=== PATIENT | male | born 1955 | race Hispanic/Latino ===

== ENCOUNTER → 2023-11-19 | Emergency (ER) | payer OTHER ==
--- OUTSIDE RECORDS SUMMARY | 2023-11-19 13:36 | XMS REPORT | Continuity of Care Document ---
Author Name Unknown Address [address] [facility] [address] [place] [address] [facility] [address] [facility] [address] [place] [address] Care Team Providers Care Portable Trackman Name Role Phone Pcp, Patient Does Not Have A Primary Care Physic gonzalo Piyush Marsh RN Attending Clinician Unavailab le Only, Ang Db Test Attending Clinician Unavailabl e Unknown, Attending Attending Clinician Unavailab XIOMARA Panda Attending Clinician Unavailable Payers Payer Name Policy Type Policy Number Effective Date Expirati on Date Source Allergies, Adverse Reactions, Alerts Allergy Name Allergy Type Status Severity Reaction(s) Onset Date Inactive Date Treating Clinician Comments Source NO KNOWN ALLERGIE S Drug Class Active [facility] Social History Social Habit Start Date Stop Date Quantity Comments Source Exposure to SARS-CoV-2 (event) Not sure [facility] Sex Assigned At 1955 00:00:00 1955 00:00:00 [facility] Smoking Status Start Date Stop Date Source Unknown if ever smoked [facility] Encounters Start Date/Time End Date/Time Encounter Type Admission Type Attending Clinicians Care Facility Care Department Encounter ID Source 2021-12-06 00:00:00 2021-12-06 00:00:00 Letter (Out) Piyush Marsh [facility] [id number] [facility] 2021-12-05 15:00:00 2021-12-05 15:15:00 Laboratory Only Only, Ang Db Test Unknown, Attending [facility] [id number] [facility] 2021-12-05 15:00:00 2021-12-05 15:00:00 Outpatient XIOMARA LAMB [facility] [id number] [facility]
--- NOTE | 2023-11-19 14:53 | EDPHYS ---
Physician Documentation [facility] Name: Ben Gillis Age: 68 yrs Sex: Male : 1955 Arrival Date: 11/19/2023 Time: 13:33 Bed IW1 Private MD: ED Physician Eliezer Brown HPI: 11/19 13:45 This 68 yrs old Male presents to ER via Unassigned with complaints of Flu kb Symptoms. 13:45 Pt is a 68 year old male who presents with cough, congestion, fever, chills, bodyaches kb and fatigue that started 3 days ago. Denies chest pain or shortness of breath. Historical: - Allergies: 13:59 No Known Allergies; bp - Immunization history:: Adult Immunizations up to date. - Social history:: Smoking status: Patient denies any tobacco usage or history of. ROS: 13:44 Abdomen/GI: Negative for abdominal pain, nausea, vomiting, diarrhea, and constipation, kb 13:44 Constitutional: Positive for body aches, chills, fatigue, fever, malaise, 13:44 ENT: Positive for sinus congestion, 13:44 Respiratory: Positive for cough, 13:44 All other systems are negative, Exam: 13:44 Constitutional: This is a well developed, well nourished patient who is awake, alert, kb and in no acute distress. Head/Face: Normocephalic, atraumatic. ENT: Moist Mucous membranes Cardiovascular: Regular rate Respiratory: Respirations even and unlabored. No increased work of breathing. Talking in full sentences Skin: Warm, dry with normal turgor. Normal color. MS/ Extremity: Pulses equal, no cyanosis. Neurovascular intact. Full, normal range of motion. Neuro: Awake and alert, GCS 15, oriented to person, place, time, and situation. Moves all extremities. Normal gait. Vital Signs: 13:58 BP 135 / 89; Pulse 94; Resp 16; Temp 99.8; Pulse Ox 95% ; Weight 95.25 kg; Height 6 ft. bp 1 in. ; 13:58 Body Mass Index 27.71 (95.25 kg, 185.42 cm) bp MDM: 13:37 Patient medically screened. kb 13:45 Differential diagnosis: flu, covid, uri, pneumonia. Data reviewed: vital signs, nurses kb notes. Test considered but Not performed: X-ray: chest x-ray considered, but lungs clear bilaterally, resp even and unlabored. 14:52 Counseling: I had a detailed discussion with the patient and/or guardian regarding the kb historical points, exam findings, and any diagnostic results supporting the discharge/admit diagnosis, lab results, the need for outpatient follow up, a family practitioner, to return to the emergency department if symptoms worsen or persist or if there are any questions or concerns that arise at home. 11/19 13:44 Order name: Flu; Complete Time: 14:43 kb 11/19 13:44 Order name: SARS-COV-2 RT PCR; Complete Time: 14:52 kb Administered Medications: No medications were administered Disposition: 15:37 Co-signature as Attending Physician, Eliezer Brown MD I reviewed the patient's care rn provided by the Advanced Practice Provider and agree with the diagnosis and treatment plan. Disposition Summary: 11/19/23 14:52 Discharge Ordered Notes: Location: Home kb Condition: Stable kb Diagnosis - Acute upper respiratory infection, unspecified kb Followup: kb - With: Emergency Department - When: As needed - Reason: Worsening of condition Followup: kb - With: Private Physician - When: 2 - 3 days - Reason: Recheck today's complaints, Continuance of care, Re-evaluation by your physician Discharge Instructions: - Discharge Summary Sheet kb - Upper Respiratory Infection, Adult, Wyho-oe-Tica kb - Viral Respiratory Infection, Gsck-Pm-Bbsf kb Forms: - Medication Reconciliation Form kb - Thank You Letter kb - Antibiotic Education kb - Prescription Opioid Use kb - Patient Portal Instructions kb - Leadership Thank You Letter kb - Work release form rg4 Signatures: Dispatcher [employer] Vikki Jiménez, BRIM IRONER HAND-C BRIM IRONER HAND-Eliezer Lees MD MD rn Peltier, Brian RN RN bp
--- NOTE | 2023-11-19 14:53 | ER ---
Nurse's Notes [facility] Name: Ben Gillis Age: 68 yrs Sex: Male : 1955 Arrival Date: 11/19/2023 Time: 13:33 Bed IW1 Private MD: Diagnosis: Acute upper respiratory infection, unspecified Presentation: 11/19 13:58 Chief complaint: Patient states: FATIGUE, MYALGIA, CONGESTION AND FEVER SINCE FRIDAY. bp Coronavirus screen: chills, congestion, cough unrelated to allergies, fever, muscle pain. Ebola Screen: No symptoms or risks identified at this time. Initial Sepsis Screen: Does the patient meet any 2 criteria? No. Patient's initial sepsis screen is negative. Does the patient have a suspected source of infection? No. Patient's initial sepsis screen is negative. Risk Assessment: Do you want to hurt yourself or someone else? Patient reports no desire to harm self or others. Onset of symptoms is unknown. 13:58 Method Of Arrival: Ambulatory bp 13:58 Acuity: SUGEY 4 bp Triage Assessment: 13:59 General: Appears in no apparent distress. ill, Behavior is calm, cooperative, bp appropriate for age. Pain: Complains of pain in GENERAL MYALGIA. Historical: - Allergies: 13:59 No Known Allergies; bp - Immunization history:: Adult Immunizations up to date. - Social history:: Smoking status: Patient denies any tobacco usage or history of. Screenin:00 [facility] ED Fall Risk Assessment (Adult) History of falling in the last 3 months, bp including since admission No falls in past 3 months (0 pts). Abuse screen: Denies threats or abuse. Denies injuries from another. Nutritional screening: No deficits noted. Tuberculosis screening: No symptoms or risk factors identified. Assessment: 14:00 General: SEE TRIAGE NOTE. bp Vital Signs: 13:58 BP 135 / 89; Pulse 94; Resp 16; Temp 99.8; Pulse Ox 95% ; Weight 95.25 kg; Height 6 ft. bp 1 in. ; 13:58 Body Mass Index 27.71 (95.25 kg, 185.42 cm) bp ED Course: 13:36 Patient arrived in ED. im 13:36 Vik[facility] Solis FNP-C [facility] kb 13:36 Eliezer Brown MD is Attending Physician. kb 13:59 Triage completed. bp 13:59 Arm band placed on. bp 14:00 Patient has correct armband on for positive identification. Provided Education on: N/A. bp 14:03 Flu Sent. bd 14:04 SARS-COV-2 RT PCR Sent. bd 14:56 No provider procedures requiring assistance completed. Patient did not have IV access ap3 during this emergency room visit. Administered Medications: No medications were administered Medication: 14:00 VIS not applicable for this client. bp Outcome: 14:52 Discharge ordered by MD. kb 14:56 Discharged to home ambulatory, ap3 14:56 Condition: good 14:56 Discharge instructions given to patient, Instructed on discharge instructions, follow up and referral plans. Demonstrated understanding of instructions, follow-up care, patient left with verbal discharge prior to this nurse giving him his discharge documentation 14:57 Patient left the ED. ap3 Signatures: Vikki Solis, BEATRICE-C MANAGER CARD-Griselda Forrest Brian, RN RN bp Alma Malloy RN RN ap3 Isabel Asencio
[2023-11-19 16:51] VITALS: BP 135/89; TEMP 99.8; O2SAT 95
== END ==
LOC: ER 13:33
DX: J06.9 Acute upper respiratory infection, unspecified (principal); Z11.52 Encounter for screening for COVID-19
CPT/HCPCS: 87635; 87804

== ENCOUNTER 2024-03-24 13:41 | Emergency (ER) | payer OTHER ==
--- OUTSIDE RECORDS SUMMARY | 2024-03-24 13:45 | XMS REPORT | Continuity of Care Document ---
Author Name Unknown Address [address] [facility] [address] [place] [address] [facility] [address] [facility] [address] [place] [address] Care Team Providers Care Metal Checker Name Role Phone Pcp, Patient Does Not [...] NO KNOWN ALLERGIE S Drug Class Active [facility] Social History Social Habit Start Date Stop Date Quantity Comments Source Exposure to SARS-CoV-2 (event) Not sure [facility] Sex Assigned At 1955 00:00:00 1955 00:00:00 [facility] Smoking Status Start Date Stop Date Source Unknown if ever smoked [facility] Encounters Start Date/Time End Date/Time Encounter Type Admission Type Attending Clinicians Care Facility Care Department Encounter ID Source 2021-12-06 00:00:00 2021-12-06 00:00:00 Letter (Out) Piyush Marsh [facility] [id number] [facility] 2021-12-05 15:00:00 2021-12-05 15:15:00 Laboratory Only Only, Ang Db Test Unknown, Attending [facility] [id number] [facility] 2021-12-05 15:00:00 2021-12-05 15:00:00 Outpatient XIOMARA LAMB [facility] [id number] [facility]
[2024-03-24] MEDS ORDERED: DERMABOND SKIN ADHESIVE TOP ONE (13:55)
--- NOTE | 2024-03-24 14:03 | ER ---
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 Coronavirus screen: At this time, the client does not indicate any symptoms associated with coronavirus-19. Ebola Screen: No symptoms or risks identified at this time. Initial Sepsis Screen: Does the patient meet any 2 criteria? No. Patient's initial sepsis screen is negative. Does the patient have a suspected source of infection? No. Patient's initial sepsis screen is negative. Risk Assessment: Do you want to hurt yourself or someone else? Patient reports no desire to harm self or others. Onset of symptoms was March 24, 2024. 13:48 Method Of Arrival: Ambulatory ap3 13:48 Acuity: SUGEY 3 ap3 Triage Assessment: 13:49 General: Appears in no apparent distress. Behavior is calm, cooperative, appropriate ap3 for age. Pain: Denies pain. Neuro: Level of Consciousness is awake, alert, obeys commands, Oriented to person, place, time, situation, Appropriate for age. Cardiovascular: Patient's skin is warm and dry. Respiratory: Airway is patent Respiratory effort is even, unlabored, Respiratory pattern is regular, symmetrical. Derm: Wound noted right medial malleolus. Historical: - Allergies: 13:49 No Known Allergies; ap3 - Home Meds: 13:50 hydrochlorothiazide 25 mg Oral tablet [Active]; memantine 10 mg oral tablet [Active]; ap3 donepezil 23 mg oral tablet [Active]; amlodipine 10 mg tablet [Active]; - PMHx: 13:49 Dementia; ap3 - PSHx: 13:49 Tonsillectomy; ap3 - Immunization history:: Client reports having NOT received the Covid vaccine. - Infectious Disease History:: Denies. - Social history:: Smoking status: unknown Patient uses alcohol. Screenin:52 Abuse screen: Denies threats or abuse. Nutritional screening: No deficits noted. ap3 Tuberculosis screening: No symptoms or risk factors identified. 14:11 [facility] ED Fall Risk Assessment (Adult) History of falling in the last 3 months, ap3 including since admission No falls in past 3 months (0 pts) Confusion or Disorientation No (0 pts) Intoxicated or Sedated No (0 pts) Impaired Gait No (0 pts) Mobility Assist Device Used No (0 pt) Altered Elimination No (0 pt) Score/Fall Risk Level 0 - 2 = Low Risk Oriented to surroundings, Maintained a safe environment, Educated pt \T\ family on fall prevention, incl call for assistance when getting out of bed, Assessed \T\ reinforced patient's understanding of fall precautions, Provided non-skid footwear, Hourly rounding (assess needs \T\ fall precautionary measures) done, Used ambulatory aids as needed (educated on \T\ assisted with), Used gait belt as appropriate. Vital Signs: 13:48 Pulse 76; Resp 18; Temp 97.8; Pulse Ox 96% ; Weight 99.79 kg; Height 6 ft. 0 in. ; ap3 13:53 BP 174 / 109; ap3 13:48 Body Mass Index 29.84 (99.79 kg, 182.88 cm) ap3 ED Course: 13:45 Patient arrived in ED. mr 13:49 Triage completed. ap3 13:52 Arm band placed on right wrist. ap3 13:53 Tino Kraft DO is Attending Physician. ms3 14:09 Patient did not have IV access during this emergency room visit. ap3 14:10 Patient has correct armband on for positive identification. Provided Education on: ap3 wound care. 14:10 Assist provider with laceration repair on right medial malleolus using Dermabond. ap3 Performed by Tino Kraft DO Patient tolerated well. Dressings: ABD pad. Administered Medications: No medications were administered Medication: 14:11 VIS not applicable for this client. ap3 Outcome: 14:02 Discharge ordered by . ms3 14:10 Discharged to home ambulatory, ap3 14:10 Condition: good 14:10 Discharge instructions given to patient, Instructed on discharge instructions, follow up and referral plans. Demonstrated understanding of instructions, 14:11 Patient left the ED. ap3 Signatures: Eloise Lorenzo, Reg Rj mr Alma Malloy RN RN ap3 Tino Kraft DO DO ms3 Corrections: (The following items were deleted from the chart) 14:11 14:09 No provider procedures requiring assistance completed. ap3 ap3
--- NOTE | 2024-03-24 14:11 | EDPHYS ---
Physician Documentation [facility] Name: Ben Gillis Age: 68 yrs Sex: Male : 1955 Arrival Date: 03/24/2024 Time: 13:41 Bed IW9 Private MD: ED Physician Tino Kraft HPI: 03/24 14:02 This 68 yrs old Male presents to ER via Ambulatory with complaints of Busted ms3 blood vessel on foot. 14:02 68-year-old male with past medical history of dementia presents to the emergency ms3 department for left foot varicose vein bleeding. Patient states yesterday he scratched his foot and the vein began bleeding. At that time he was able to get the bleeding to stop. Patient then went to work today and was drained out. On coming home he pulled off his sock and his foot began bleeding.. Historical: - Allergies: 13:49 No Known Allergies; ap3 - Home Meds: 13:50 hydrochlorothiazide 25 mg Oral tablet [Active]; memantine 10 mg oral tablet [Active]; ap3 donepezil 23 mg oral tablet [Active]; amlodipine 10 mg tablet [Active]; - PMHx: 13:49 Dementia; ap3 - PSHx: 13:49 Tonsillectomy; ap3 - Immunization history:: Client reports having NOT received the Covid vaccine. - Infectious Disease History:: Denies. - Social history:: Smoking status: unknown Patient uses alcohol. ROS: 14:02 Constitutional: Negative for fever, and chills. Neck: Negative for injury, pain, and ms3 swelling, Cardiovascular: Negative for chest pain, and palpitations. Respiratory: Negative for shortness of breath, cough, wheezing, and pleuritic chest pain, Abdomen/GI: Negative for abdominal pain, nausea, vomiting, diarrhea, and constipation, 14:02 Skin: Positive for Varicose vein bleeding, Exam: 14:02 Constitutional: This is a well developed, well nourished patient who is awake, alert, ms3 and in no acute distress. Head/Face: Normocephalic, atraumatic. Neck: Trachea midline, no cervical lymphadenopathy. Supple, full range of motion without nuchal rigidity, or vertebral point tenderness. No Meningismus. Chest/axilla: Normal chest wall appearance and motion. Nontender with no deformity. Cardiovascular: Regular rate and rhythm with a normal S1 and S2. No gallops, murmurs, or rubs. Normal PMI, no JVD. No pulse deficits. Respiratory: Lungs have equal breath sounds bilaterally, clear to auscultation and percussion. No rales, rhonchi or wheezes noted. No increased work of breathing, no retractions or nasal flaring. Abdomen/GI: Soft, non-tender, with normal bowel sounds. No distension or tympany. No guarding or rebound. No evidence of tenderness throughout. Skin: Warm, dry with normal turgor. Normal color with no rashes, no lesions, and no evidence of cellulitis. MS/ Extremity: Pulses equal, no cyanosis. Neurovascular intact. Full, normal range of motion. Vital Signs: 13:48 Pulse 76; Resp 18; Temp 97.8; Pulse Ox 96% ; Weight 99.79 kg; Height 6 ft. 0 in. ; ap3 13:53 BP 174 / 109; ap3 13:48 Body Mass Index 29.84 (99.79 kg, 182.88 cm) ap3 MDM: 14:01 Patient medically screened. ms3 14:02 Differential diagnosis: Varicose vein ulceration. Data reviewed: vital signs, nurses ms3 notes, and as a result, I will discharge patient. Counseling: I had a detailed discussion with the patient and/or guardian regarding the historical points, exam findings, and any diagnostic results supporting the discharge/admit diagnosis, the need for outpatient follow up, to return to the emergency department if symptoms worsen or persist or if there are any questions or concerns that arise at home. Special discussion: I discussed with the patient/guardian in detail that at this point there is no indication for admission to the hospital. It is understood, however, that if the symptoms persist or worsen the patient needs to return immediately for re-evaluation. ED course: Dermabond applied to varicose vein ulceration. Wound hemostatic. Patient to follow-up with primary care physician in 2 to 3 days. Patient understands agrees with plan. All questions were answered. Return precautions discussed include worsening symptoms, or any other concerns. Administered Medications: No medications were administered Disposition: 15:15 Chart complete. 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
[2024-03-24 14:42] VITALS: BP 174/109; TEMP 97.8; O2SAT 96
== END 2024-03-24 14:11 | disposition home or self-care (01) ==
LOC: ER 13:41
DX: I83.892 Varicose veins of left lower extremity with other complications (principal)
CPT/HCPCS: 99283

== ENCOUNTER 2024-08-23 11:54 | Emergency (ER) | payer OTHER ==
--- OUTSIDE RECORDS SUMMARY | 2024-08-23 11:56 | XMS REPORT | Continuity of Care Document ---
Author Name Unknown Address [address] [facility] [address] [place] [address] [facility] [address] [facility] [address] [place] [address] Care Team Providers Care Microsoft Windows Engineer Name Role Phone Pcp, Patient Does Not [...] NO KNOWN ALLERGIE S Drug Class Active [facility] Social History Social Habit Start Date Stop Date Quantity Comments Source Exposure to SARS-CoV-2 (event) Not sure [facility] Sex Assigned At 1955 00:00:00 1955 00:00:00 [facility] Smoking Status Start Date Stop Date Source Unknown if ever smoked [facility] Encounters Start Date/Time End Date/Time Encounter Type Admission Type Attending Clinicians Care Facility Care Department Encounter ID Source 2021-12-06 00:00:00 2021-12-06 00:00:00 Letter (Out) Piyush Marsh [facility] [id number] [facility] 2021-12-05 15:00:00 2021-12-05 15:15:00 Laboratory Only Only, Ang Db Test Unknown, Attending [facility] [id number] [facility] 2021-12-05 15:00:00 2021-12-05 15:00:00 Outpatient XIOMARA LAMB [facility] [id number] [facility]
[2024-08-23 13:16] LABS: Specific Gravity 1.025 (1.005-1.030); Sqamous Epithelial <5 /HPF (None Seen); Urine Bacteria <20 /HPF (<20); Urine Bilirubin NEGATIVE (Negative); Urine Blood 2+ (Negative); Urine Clarity Extremely Turbid (Clear); Urine Color Dark-Yellow (Yellow); Urine Culture Reflex Order NOT NEEDED; Urine Glucose TRACE (Negative); Urine Ketones NEGATIVE (Negative); Urine Microscopic Reflex YN ORDER UMIC; Urine Mucus 3+ /HPF (None Seen); Urine Nitrite NEGATIVE (Negative); Urine Protein 3+ (Negative); Urine Urobilinogen Normal (Normal); Urine WBC <5 /HPF (<5); Urine pH 5.5 (5.0-7.0)
[2024-08-23 13:28] LABS: Absolute Basophils 0.1 K/uL (0-0.5); Absolute Eosinophils 0.1 K/uL (0-0.5); Absolute Monocytes 1.6 K/uL (0.1-1.3); Absolute Neutrophil 11.2 K/uL (1.8-8.0); Basophils % 0.6 % (0-1.3); Eosinophils % 0.7 % (0-4.4); Hematocrit 52.4 % (39.6-49.0); Hemoglobin 17.1 g/dL (13.6-17.9); Lymphocytes % 7.2 % (15.3-44.8); MCHC 32.6 g/dL (32.0-36.0); MCV 95.3 fL (80-100); MPV 9.5 fL (7.6-11.3); Monocytes % 11.4 % (3.3-12.3); Neutrophils % 80.1 % (41.7-73.7); Platelets 268 thou/uL (152-406); RBC Red Blood Cell Count 5.49 M/uL (4.33-5.43); Red Cell Distribution Width 13.4 % (12.1-15.2)
[2024-08-23 13:32] LABS: SARS-CoV-2 Antigen CONTROL BLUE LINE VIS/BG OK; SARS-CoV-2 Antigen Rapid Res Negative (Negative)
[2024-08-23 13:42] LABS: Albumin 4.1 g/dL (3.4-5.0); Albumin/Globulin Ratio 0.7 (1.1-1.8); Anion Gap 11.5 mEq/L (5.0-15.0); Bilirubin Total 0.7 mg/dL (0.2-1.0); Globulin 5.9 g/dL (2.3-3.5); Potassium 4.5 mEq/L (3.5-5.1)
[2024-08-23] MEDS ORDERED: NA CHLORIDE 0.9% 1,000 ML ONE (13:42)
--- NOTE | 2024-08-23 13:49 | RAD REPORT ---
EXAM: XR of the abdomen HISTORY: Abdominal pain diarrhea COMPARISON: None FINDINGS: XR of the abdomen shows a nonspecific, nonobstructive bowel gas pattern. No suspicious medina cifications are seen. The bones are unremarkable. IMPRESSION: Unremarkable exam
--- NOTE | 2024-08-23 14:09 | RAD REPORT ---
EXAMINATION: CT ABDOMEN AND PELVIS WITHOUT CONTRAST CLINICAL INDICATION: diarrhea, kamala TECHNIQUE: CT abdomen and pelvis was performed, without IV contrast, as per department protocol. Axia l, sagittal and coronal reconstructions were obtained. One or more of the following dose reduction techniques were used: Automated exposure control, adjustment of the mA and kV according to the patien t size, and iterative reconstruction. Unless otherwise specified, incidental findings do not require dedicated imaging follow-up. COMPARISON: No prior exam. FINDINGS: The lack of intravenous contrast limits the sensitivity of this exam for evaluation of solid visceral organs, vascular structures, and retroperitoneum. LOWER CHEST: The visualized lung bases are clear. LIVER:Mild fatty liver is present. No focal lesion or biliary dilatation is seen. Grossly unremarka ble gallbladder. SPLEEN: Normal size. No focal lesion. PANCREAS: No mass, ductal dilation, or meghna-pancreatic fluid. ADRENALS: Normal; no mass. KIDNEYS AND URETERS: Normal size and contour. No hydronephrosis. URINARY BLADDER: Normal contour. GASTROINTESTINAL TRACT: Diffusely thickened colon with numerous diverticula present. Multiple small l ymph nodes are seen in the transverse mesocolon as well as the sigmoid mesocolon. No pneumatosis coli seen. APPENDIX: Normal appendix. LYMPH NODES: No lymphadenopathy. MUSCULOSKELETAL: Grade 1-2 anterolisthesis of L4 on 5 with bilateral chronic spondylolysis. ADDITIONAL FINDINGS: Small fat-containing umbilical hernia. IMPRESSION: Findings are suggestive of a diffuse pancolitis. Numerous small subcentimeter lymph nodes are seen wi thin the transverse mesocolon as well as the sigmoid mesocolon. No pneumatosis coli or obstruction evident. Follow-up colonoscopy would be recommended for further evaluation.
--- NOTE | 2024-08-23 14:32 | EDPHYS ---
Physician Documentation [facility] Name: Ben Gillis Age: 69 yrs Sex: Male : 1955 Arrival Date: 08/23/2024 Time: 11:54 Bed DX4 Private MD: ED Physician Piyush Strickland HPI: 08/23 12:16 This 69 yrs old Male presents to ER via Unassigned with complaints of Diarrhea.sb4 13:27 Patient states over the weekend he was in the sun and now feels very fatigued. States sb4 that additionally, he has had a lot of diarrhea. Denies any other associated symptoms. No abdominal pain, nausea, vomiting, fever, URI symptoms. Denies any prior episodes. Historical: - Allergies: 12:17 No Known Allergies; ss - PMHx: 12:17 Dementia; high blood pressure; ss - PSHx: 12:17 Tonsillectomy; ss - Immunization history:: Client reports having NOT received the Covid vaccine. - Infectious Disease History:: Denies. - Social history:: Smoking status: Patient denies any tobacco usage or history of. ROS: 13:27 Respiratory: Negative for shortness of breath, cough, wheezing, and pleuritic chest sb4 pain, 13:27 Constitutional: Positive for fatigue, 13:27 Abdomen/GI: Positive for diarrhea, 13:27 All other systems are negative, Exam: 13:27 Constitutional: This is a well developed, well nourished patient who is awake, alert, sb4 and in no acute distress. Head/Face: Normocephalic, atraumatic. Eyes: Extra-ocular motions intact. Periorbital areas with no swelling, redness, or edema. Cardiovascular: Regular rate and rhythm with a normal S1 and S2. Respiratory: No increased work of breathing, no retractions or nasal flaring. Abdomen/GI: Soft, non-tender, no distension. Skin: Warm, dry with normal turgor. Normal color with no rashes, no lesions, and no evidence of cellulitis. Vital Signs: 12:16 BP 127 / 87; Pulse 100; Resp 16; Temp 98.2(O); Pulse Ox 96% on R/A; Weight 95.25 kg; ss Height 6 ft. 1 in. ; 12:16 Body Mass Index 27.71 (95.25 kg, 185.42 cm) ss MDM: 12:16 Medical Screening Exam initiated sb4 14:30 Data reviewed: vital signs, nurses notes, lab test result(s), radiologic studies, and sb4 as a result, I will discharge patient. Consideration of Admission/Observation Escalation of care including admission/observation considered. Counseling: I had a detailed discussion with the patient and/or guardian regarding the historical points, exam findings, and any diagnostic results supporting the discharge/admit diagnosis, lab results, radiology results, the need for further work-up and treatment in the hospital. Refusal of service: The patient/guardian displays adequate decision making capability and despite a detailed discussion of alternatives, benefits, risks, and consequences refuses: Admission to the hospital for further work-up and treatment. ED course: Recommended admission for patient due to acute renal failure and sepsis secondary to pancolitis but he refuses. He wishes to go home at this time and will take oral antibiotics. He states that he will return if his symptoms worsen. He understands all risks of leaving against my medical advice. 08/23 12:16 Order name: CBC with Diff; Complete Time: 13:42 sb4 08/23 12:16 Order name: CMP; Complete Time: 13:42 sb4 08/23 12:16 Order name: Lipase; Complete Time: 13:42 sb4 08/23 12:16 Order name: Urinalysis w/ reflexes; Complete Time: 13:19 sb4 08/23 12:16 Order name: CK; Complete Time: 13:42 sb4 08/23 12:16 Order name: SARS RAPID; Complete Time: 13:42 sb4 08/23 12:16 Order name: Flu; Complete Time: 13:42 sb4 08/23 14:13 Order name: Blood Culture Adult (2) sb4 08/23 14:13 Order name: Lactate w/ 2H reflex if indic. sb4 08/23 14:13 Order name: Protime (+inr) sb4 08/23 14:13 Order name: Ptt, Activated sb4 08/23 12:16 Order name: Abdomen 1 View (KUB) XRAY; Complete Time: 13:54 sb4 08/23 13:43 Order name: CT Abd/Pelvis - Without Contrast; Complete Time: 14:12 sb4 08/23 12:16 Order name: IV Saline Lock; Complete Time: 13:20 sb4 08/23 12:16 Order name: Labs collected and sent; Complete Time: 13:20 sb4 Administered Medications: 14:08 Drug: NS 0.9% IV 1000 ml IV at 1 bolus Per protocol; to be given as a bolus over 60 ss minutes Route: IV; Rate: 1 bolus; Site: right antecubital; 15:18 Follow up: IV Status: Completed infusion; IV Intake: 1000ml ss Disposition Summary: 08/23/24 14:32 Discharge Ordered Notes: Location: Home sb4 Problem: new sb4 Symptoms: have improved sb4 Condition: Fair sb4 Diagnosis - Pancolitis sb4 - Acute kidney failure, unspecified sb4 Followup: sb4 - With: Emergency Department - When: As needed - Reason: Fever > 102 F, Worsening of condition Discharge Instructions: - Discharge Summary Sheet sb4 - Food Choices to Help Relieve Diarrhea, Adult sb4 - Acute Kidney Injury, Adult sb4 - Rehydration, Adult sb4 - Colitis sb4 Forms: - Antibiotic Education sb4 - Patient Portal Instructions sb4 - Leadership Thank You Letter sb4 Prescriptions: - Flagyl 500 mg Oral Tablet - take 1 tablet ORAL route every 8 hours for 10 days; 30 tablet; Refills: 0, sb4 Product Selection Permitted - Cipro 500 mg Oral Tablet - take 1 tablet ORAL route every 12 hours for 7 days; 14 tablet; Refills: 0, sb4 Product Selection Permitted Signatures: Dispatcher [employer] EDCheryl Benedict RN RN ss Brown, Sophia, PA-C PALuis sb4 Corrections: (The following items were deleted from the chart) 12:16 12:16 CBC+H.LAB.BRZ ordered. EDMS EDMS 12:16 12:16 COMPREHENSIVE METABOLIC PANEL+C.LAB.BRZ ordered. EDMS EDMS 12:16 12:16 LIPASE+C.LAB.BRZ ordered. EDMS EDMS 12:16 12:16 Urinalysis+U.LAB.BRZ ordered. EDMS EDMS 12:16 12:16 CREATINE PHOSPHOKINASE+C.LAB.BRZ ordered. EDMS EDMS 12:16 12:16 Abdomen 1 View (KUB)+RAD.RAD.BRZ ordered. EDMS EDMS 12:16 12:16 SARS-COV-2 Antigen Rapid+I.LAB.BRZ ordered. EDMS EDMS 12:16 12:16 Influenza Screen (A \T\ B)+BA.LAB.BRZ ordered. EDMS EDMS 14:14 14:14 BLOOD CULTURE*+BA.LAB.BRZ ordered. EDMS EDMS 14:14 14:14 LACTATE+C.LAB.BRZ ordered. EDMS EDMS 14:14 14:14 PROTIME (+INR)+COAG.LAB.BRZ ordered. EDMS EDMS 14:14 14:14 PTT, ACTIVATED+COAG.LAB.BRZ ordered. EDGA EDMS 19:45 14:30 Counseling: I had a detailed discussion with the patient and/or guardian sb4 regarding the historical points, exam findings, and any diagnostic results supporting the discharge/admit diagnosis, lab results, radiology results, the need for further work-up and treatment in the hospital, sb4
--- NOTE | 2024-08-23 14:32 | ER ---
Nurse's Notes [facility] Name: Ben Gillis Age: 69 yrs Sex: Male : 1955 Arrival Date: 08/23/2024 Time: 11:54 Bed DX4 Private MD: Diagnosis: Pancolitis;Acute kidney failure, unspecified Presentation: 08/23 12:16 Chief complaint: Patient states: Fatigue and Diarrhea x 2-3 days. Coronavirus screen: ss Client denies travel out of the [place] in the last 14 days. Ebola Screen: Patient denies exposure to infectious person. Patient denies travel to an Ebola-affected area in the 21 days before illness onset. Initial Sepsis Screen: Does the patient meet any 2 criteria? No. Patient's initial sepsis screen is negative. Does the patient have a suspected source of infection? No. Patient's initial sepsis screen is negative. Risk Assessment: Do you want to hurt yourself or someone else? Patient reports no desire to harm self or others. Onset of symptoms was August 20, 2024. 12:16 Method Of Arrival: Ambulatory ss 12:16 Acuity: SUGEY 3 ss Historical: - Allergies: 12:17 No Known Allergies; ss - PMHx: 12:17 Dementia; high blood pressure; ss - PSHx: 12:17 Tonsillectomy; ss - Immunization history:: Client reports having NOT received the Covid vaccine. - Infectious Disease History:: Denies. - Social history:: Smoking status: Patient denies any tobacco usage or history of. Screenin:16 Abuse screen: Denies threats or abuse. Denies injuries from another. Nutritional ss screening: No deficits noted. Tuberculosis screening: Never had TB. Assessment: 13:54 Reassessment: Pt in CT at this time. ss 15:16 Reassessment: Patient appears in no apparent distress at this time. Patient and/or ss family updated on plan of care and expected duration. Pain level reassessed. Patient is alert, oriented x 3, equal unlabored respirations, skin warm/dry/pink. 15:17 Reassessment: Pt still states he does not want to be admitted to the hospital. ss Verbalizes understanding importance of returning for worsening of symptoms. Vital Signs: 12:16 BP 127 / 87; Pulse 100; Resp 16; Temp 98.2(O); Pulse Ox 96% on R/A; Weight 95.25 kg; ss Height 6 ft. 1 in. ; 12:16 Body Mass Index 27.71 (95.25 kg, 185.42 cm) ss ED Course: 11:58 Patient arrived in ED. ra3 11:58 Sandy Rangel PA-C is PHCP. sb4 11:58 Piyush Strickland MD is Attending Physician. sb4 12:17 Triage completed. ss 12:17 Arm band placed on right wrist. ss 13:20 CBC with Diff Sent. cc6 13:21 CMP Sent. cc6 13:21 Lipase Sent. cc6 13:23 Initial lab(s) drawn, by me, sent to lab. Inserted saline lock: 22 gauge in right cc6 antecubital area, using aseptic technique. Blood collected. Flushed with 10 mL NS. 13:44 Cheryl Ta, RN is Primary Nurse. ss 13:45 Abdomen 1 View (KUB) XRAY In Process Unspecified. EDMS 13:56 CT Abd/Pelvis - Without Contrast In Process Unspecified. EDMS 14:58 First set of blood cultures drawn Second set of blood cultures drawn by me. cc6 15:16 Patient has correct armband on for positive identification. Bed in low position. Call ss light in reach. 15:16 No provider procedures requiring assistance completed. IV discontinued, intact, ss bleeding controlled, No redness/swelling at site. Pressure dressing applied. 15:16 IV discontinued, intact, bleeding controlled, No redness/swelling at site. Pressure ss dressing applied. Administered Medications: 14:08 Drug: NS 0.9% IV 1000 ml IV at 1 bolus Per protocol; to be given as a bolus over 60 ss minutes Route: IV; Rate: 1 bolus; Site: right antecubital; 15:18 Follow up: IV Status: Completed infusion; IV Intake: 1000ml ss Medication: 15:16 VIS not applicable for this client. ss Intake: 15:18 IV: 1000ml; Total: 1000ml. ss Outcome: 14:32 Discharge ordered by . sb4 15:16 Discharged to home ambulatory, 15:16 Condition: good 15:16 Discharge instructions given to patient, Instructed on discharge instructions, follow up and referral plans. medication usage, Demonstrated understanding of instructions, follow-up care, medications, Prescriptions given X 2, 15:18 Patient left the ED. ss Signatures: Dispatcher [employer] EDCheryl Benedict, RN RN Sandy Seals PA-C PA-C sb4 Alannah Robledo ra3 Rosalva Patrick cc6
[2024-08-23 15:20] LABS: PT Prothrombin Time 13.3 SECONDS (9.4-12.5); PTT, Activated Partial Thromb 28.5 SECONDS (24.3-36.9); Protime INR 1.19
[2024-08-23 15:31] VITALS: BP 127/87; TEMP 98.2; O2SAT 96
== END 2024-08-23 15:18 | disposition home or self-care (01) ==
LOC: ER 11:54
DX: K52.9 Noninfective gastroenteritis and colitis, unspecified (principal); N17.9 Acute kidney failure, unspecified
CPT/HCPCS: 87040 ×2; 85025; 81001; 36415; 82550; 85610; 83605; 85730; 83690; 80053; 87804 ×2; 74176; 74018; 87811; J7030; 96360; 99284